=== PATIENT | male | born 1960 | race Caucasian/White ===

== ENCOUNTER 2017-09-08 15:09 | Inpatient (IN) ==
[2017-09-08 16:54] LABS: Alanine Aminotransferase 21 Units/L (7-52); Albumin 4.4 g/dL (3.5-5.7); Albumin/Globulin Ratio 1.6 (1.1-2.2); Alkaline Phosphatase 77 Units/L (34-104); Aspartate Amino Transferase 26 Units/L (13-39); BUN/Creatinine Ratio 39 (6-26); Bilirubin,Total 0.5 mg/dL (0.3-1.0); Blood Urea Nitrogen 55 mg/dL (6-20); Calcium 9.3 mg/dL (8.6-10.3); Carbon Dioxide 28 mEq/L (23-29); Chloride 105 mEq/L (98-107); Globulin 2.7 g/dL (2.4-3.5); Glucose 113 mg/dL (70-105); Osmolality,Calculated 308 (280-300); Potassium 4.7 mEq/L (3.5-5.1); Sodium 141 mEq/L (136-145); Total Protein 7.1 g/dL (6.4-8.9); eGFR For African Americans > 60 (> 60); eGFR For Non-African Americans 52 (> 60)
[2017-09-08 16:56] LABS: Basophils % 0.1 %; Hematocrit 32.4 % (37.5-50.1); Hemoglobin 10.6 g/dL (12.9-16.9); Immature Granulocytes % 0.3 % (0-4); Lymphocytes # 0.3 K/mcL (0.6-4.6); Lymphocytes % 2.5 %; Mean Corpuscular HGB Conc 32.7 g/dL (31.6-35.5); Mean Corpuscular Hemoglobin 29.9 pg (28.0-33.3); Mean Corpuscular Volume 91.3 fL (83.0-100.0); Mean Platelet Volume 9.7 fL (9.4-12.4); Monocytes # 0.4 K/mcL (0.0-1.3); Monocytes % 3.1 %; Neutrophils # 10.9 K/mcL (1.6-8.9); Platelet Count 190 K/mcL (140-400); Red Blood Count 3.55 M/mcL (4.19-5.50); Red Cell Distribution Width 12.2 % (11.5-14.5)
--- NOTE | 2017-09-08 16:59 | Emergency Department Note ---
Disposition Clinical Impression: Creatinine elevation Ingestion of foreign material Qualifiers: Encounter type: initial encounter Qualified Code(s): T18.9XXA - Foreign body of alimentary tract, part unspecified, initial encounter Disposition: Admitted As Inpatient Condition: Fair Time of Disposition: 18:09 General Adult HPI - General Chief complaint: ED General Medical Stated complaint: "drank cleaning fluid" Time Seen by Provider: 09/08/17 15:21 Source: patient, family Mode of arrival: ambulatory Limitations: no limitations Nursing Notes Reviewed: Yes Vital Signs Reviewed: Yes - History of Present Illness HPI Narrative: 56-year-old male presents to the emergency department with history of dementia for drinking cleaning fluid. Family said that he does have dementia and wandering around and drinks Hartman stuff. They said that they noticed the ware cleaner was Bronson emptying and when they started and there was some in the sink but there was deftly some around his mouth or unsure how much he drank. They stated been acting normal since he said he was having a little bit hard time breathing right after this but since then has gotten better. He has no other medical issues including no dyspnea or lung problems. He has no COPD or asthma. Patient otherwise is having no complaints including no fevers, chills, nausea, vomiting, neck pain, back pain, headache, blurry vision, abdominal pain , change in balance, pain with urination, generalized weakness or pain or tingling going down the arms or legs. Pain Scale: 2 - Related Data Home Medications Medication Instructions Recorded Confirmed ALPRAZolam [Xanax 0.25 MG Tablet] 0.25 mg PO BID 07/21/17 08/27/17 Previous Rx's Medication Instructions Recorded Polyethylene Glycol 3350 [MiraLAX] 17 gm PO DAILY #1 tub 08/27/17 Tamsulosin [Flomax] 1 tab PO DAILY #30 cap.er.24h 08/27/17 Allergies Allergy/AdvReac Type Severity Reaction Status Date / Time No Known Allergies Allergy Verified 09/05/17 10:44 Review of Systems: 10 point review of systems done and negative unless otherwise stated in the history of present illness. All systems ED: reviewed and negative except as stated. Review of Systems: As Per HPI Past Medical History - Past Medical History Attestation: Yes The following information was validated with the patient. Source: patient Medical history: Reports: dementia Psychiatric history: Reports: no psych history - Social History Smoking Status: Former smoker Smokeless Tobacco Status: No Alcohol use: Reports: none Drug use: Reports: none Physical Exam - General Limitations: no limitations General appearance: alert, in no apparent distress - Head Head exam: atraumatic, normocephalic, normal inspection - Eye Eye exam: Present: normal appearance, PERRL, EOMI - ENT ENT exam: normal exam, normal oropharynx, mucous membranes moist - Neck Neck exam: Present: normal inspection, full ROM, trachea midline - Chest Chest inspection: Present: normal inspection, symmetric chest wall rise - Respiratory Respiratory exam: Present: normal lung sounds bilaterally - Cardiovascular Cardiovascular exam: Present: regular rate, normal rhythm, normal heart sounds - Abdominal Exam Abdominal exam: Present: soft, Non-Tender. Absent: tenderness, distention, guarding, rebound, rigidity - Extremities Exam Extremities exam: Present: normal inspection, full ROM. Absent: tenderness, pedal edema - Expanded Lower Extremity Exam Neurovascular/Tendon exam: Present: normal capillary refill. Absent: pulse deficit, motor deficit, sensory deficit, tendon deficit - Back Exam Back exam: Present: normal inspection, full ROM. Absent: tenderness, CVA tenderness (R), CVA tenderness (L) - Neurological Exam Neurological exam: Present: alert. Absent: oriented X3 (Normal according to family. Due to dementia.) - Skin Skin exam: Present: warm, dry, intact, normal color Course Course Narrative: 56-year-old male presents to the emergency department after drinking cleaning fluid they believe it was and Mr. landa all-purpose. I did speak with our security solutions architect Dr. Jo who said you can just observe these patient is loss there is no changes in mental status as well as having hard time breathing observe him for 2 hours. We did get a CBC and CMP as well as chest x-ray. We will observe for 2 hours and then. Disposition at that time. - Reevaluation(s) Reevaluation #1: Spoke with poison control who said that the new creatinine most likely is not from the drinking of Mr. landa. They said we will probably happened is he vomited after drinking and possibly an aspiration pneumonitis 60 recommended blood cultures and admission for evaluation for possible aspiration pneumonitis. Time: 17:30 - Consultations Consultation #1: Spoke with the hospitalist Dr. Garcia who agreed to admit the patient to their service. Time: 18:03 Vital Signs Temperature 100.6 F H 09/08/17 15:13 Pulse Rate 89 09/08/17 15:13 Respiratory Rate 18 09/08/17 15:13 Blood Pressure 138/81 09/08/17 15:13 O2 Sat by Pulse Oximetry 97 09/08/17 15:13 Temperature 100.6 F H 09/08/17 15:13 Pulse Rate 89 09/08/17 15:13 Respiratory Rate 18 09/08/17 15:13 Blood Pressure 138/81 09/08/17 15:13 O2 Sat by Pulse Oximetry 97 09/08/17 15:13 Oxygen Delivery Oxygen Delivery Room Air Medical Decision Making - MDM Narrative Medical decision making narrative: 56-year-old male presents to the emergency department after drinking Mr. Martínez. They said he drank an unknown amount. I did consult with our security solutions architect Dr. Beltran who recommended due to the elevated creatinine to at least observe the patient. We did call contact poison control and they said the increase in BUN/creatinine most likely is not from the Mr. landa but could be due to a aspiration pneumonitis and they recommended admission with repeat a chest x-ray and blood cultures for possible and IV antibiotics needed. Patient is demented started give the IVN fluids as well as antibiotics we need to give 2 mg Haldol which patient tolerated well. We are not giving him back to this time as ischemia pending results. I did speak with the hospitalist who agreed to admit the patient to their service. Patient did have a new elevated creatinine and BUN doubled for approximately 12 days ago otherwise all other labs were negative he had no nausea or vomiting with states that was the most likely symptoms after drinking the Mr. landa. Chest x-ray also had no acute 100 maladies. Patient is admitted to the hospitalist for in stable condition at this time. Chest X-Ray 09/08/17 15:27 IMPRESSION: Normal chest x-ray D/ / Pollo Aguiar MD / Pollo Aguiar MD Interpreting Provider: Pollo Aguiar MD - Medical Records Medical records reviewed: Yes I reviewed the patient's medical records. - Lab Data Lab results reviewed: Yes I reviewed the patient's lab results. Result diagrams: 09/08/17 16:13 09/08/17 16:13 Lab Results 09/08/17 09/08/17 09/08/17 Range/Units 16:13 16:13 17:31 WBC 11.6 H (4.3-11.1) K/mcL RBC 3.55 L (4.19-5.50) M/mcL Hgb 10.6 L (12.9-16.9) g/dL Hct 32.4 L (37.5-50.1) % MCV 91.3 (83.0-100.0) fL MCH 29.9 (28.0-33.3) pg MCHC 32.7 (31.6-35.5) g/dL RDW 12.2 (11.5-14.5) % Plt Count 190 (140-400) K/mcL MPV 9.7 (9.4-12.4) fL Immature Gran % 0.3 (0-4) % Seg Neutrophils % 94.0 % Lymphocytes % 2.5 % Monocytes % 3.1 % Eosinophils % 0.0 % Basophils % 0.1 % Neutrophils # 10.9 H (1.6-8.9) K/mcL Lymphocytes # 0.3 L (0.6-4.6) K/mcL Monocytes # 0.4 (0.0-1.3) K/mcL Eosinophils # 0.0 (0.0-0.6) K/mcL Basophils # 0.0 (0.0-0.2) K/mcL Sodium 141 (136-145) mEq/L Potassium 4.7 (3.5-5.1) mEq/L Chloride 105 (98-107) mEq/L Carbon Dioxide 28 (23-29) mEq/L BUN 55 H (6-20) mg/dL Creatinine 1.41 H (0.70-1.30) mg/dL Est GFR ( Amer) > 60 (> 60) Est GFR (Non-Af Amer) 52 L (> 60) BUN/Creatinine Ratio 39 H (6-26) Glucose 113 H (70-105) mg/dL Calculated Osmolality 308 H (280-300) Lactic Acid 0.7 (0.5-2.2) mmol/L Calcium 9.3 (8.6-10.3) mg/dL Total Bilirubin 0.5 (0.3-1.0) mg/dL AST 26 (13-39) Units/L ALT 21 (7-52) Units/L Alkaline Phosphatase 77 (34-104) Units/L Serum Total Protein 7.1 (6.4-8.9) g/dL Albumin 4.4 (3.5-5.7) g/dL Globulin 2.7 (2.4-3.5) g/dL Albumin/Globulin Ratio 1.6 (1.1-2.2) - Radiology Data Radiology results reviewed: Yes I reviewed the patient's radiology results. Attestation Statement - Attestation Attestation: I examined this patient and my medical decision-making was reviewed with the Resident Physician. I agree with the documented findings, disposition and treatment plan as described except to the extent set forth below. Discussed case with attending security solutions architect. Plan to admit for acute kidney injury in the setting of febrile illness. It is possible that the patient suffered aspiration and has resulting chemical pneumonitis which has not declared itself on x-ray. As a result this may have in turn caused acute kidney injury. Given the underlying demented state of the patient it would be best to observe overnight to try and the creatinine as well as observe for respiratory insufficiency. The patient will be admitted after cultures, lactate were initiated. I would defer antibiotics at this time pending results of cultures.
[2017-09-08] MEDS ORDERED: 0.9 % Sodium Chloride 1,000 ML IVC ONE (17:13)
[2017-09-08] MEDS ORDERED: Haloperidol Lactate 5 MG/ML VIAL IVP ONE (17:41)
[2017-09-08] MEDS ORDERED: Haloperidol Lactate 5 MG/ML VIAL IM ONE (20:05)
[2017-09-08] MEDS ORDERED: Acetaminophen 325 MG TABLET PO PRN (20:25)
[2017-09-08] MEDS ORDERED: Naloxone 0.4 MG/ML INJ IVP PRN (20:25)
--- NOTE | 2017-09-08 20:49 | Internal Med History&Physical ---
Date of Encounter: 09/08/17 Time of Encounter: 19:00 Assessment and Plan (1) Aspiration pneumonia Current visit: Yes Status: Suspected Pt has cough, elevated WBC and low fever. CXR negative now. Suspected aspiration pneumonia. - Place pt on unasyn now to cover aspiration pneumonia. - NPO, IVF, speech therapy consult for swallow evaluation. - Symptomatic treatment as needed, closely monitor pt. Qualifiers: Aspiration pneumonia type: due to vomit Laterality: unspecified laterality Qualified Code(s): J69.0 - Pneumonitis due to inhalation of food and vomit (2) DVT prophylaxis Current visit: Yes Status: Acute Heparin SC (3) Creatinine elevation Current visit: Yes Status: Acute Probably due to cleaning material intake? dehydration?. Cont IVF, follow up renal function. Avoid nephrotoxic meds. (4) Ingestion of foreign material Current visit: Yes Status: Acute Closely monitor pt in tele. Follow up renal/liver function. Qualifiers: Encounter type: initial encounter Qualified Code(s): T18.9XXA - Foreign body of alimentary tract, part unspecified, initial encounter (5) Weight loss Current visit: No Status: Acute Cont f/u with oncology as outpatient. Internal Medicine - H&P: HPI Chief complaint: Cough Admitted From: Home Plans for Post Hospital Care: Home History of present illness: Mr. Junior is a 56 year old male with hx of early onset dementia sent to ER by family for suspect drinking Mr Warner at home and cough. Pt was suspected to drink about one cup of Mr Warner this afternoon. Pt has nonproductive cough. No SOB. Has low fever in ER with temperature 100.6. Pt was suspected aspiration but seems he is not nauseous. He has no witnessed vomiting as well. In ER, pt was placed on monitoring. Poison control was called by ER, recommend closely monitor pt, no specific treatment at this point. Pt's told me pt has recent BW loss although having good appetite. He is follow with oncology for this issue now. I have discussed with pt's regarding CODE STATUS, she told me pt would like no CPR but accept intubation for short period, DNRCCA placed. Past Med Surg Social Fam HX - Past Medical History Medical history: dementia Psychiatric history: no psych history - Past Surgical History Surgical History: no surgical history - Social History Smoking Status: Former smoker Smokeless Tobacco Status: No Alcohol use: none Drug use: none - Family History Father Hx Family Neurologic Disorders: Yes (Huntingtons disease) Internal Medicine - H&P: Meds Polyethylene Glycol 3350 [MiraLAX] 17 gm PO DAILY #1 tub 08/27/17 [Rx] ALPRAZolam [Xanax 0.5 MG Tablet] 0.5 mg PO TID 09/08/17 [History] Tamsulosin [Flomax] 0.4 mg PO DAILY 09/08/17 [History] 3 Allergy/AdvReac Type Severity Reaction Status Date / Time No Known Allergies Allergy Verified 09/05/17 10:44 All Systems PM: A 10-system review of systems was performed and is negative for pertinent findings except as documented above in the HPI. - Constitutional Vitals: Temp Pulse Resp BP Pulse Ox 97.7 F 76 17 122/71 98 09/08/17 19:26 09/08/17 19:26 09/08/17 19:26 09/08/17 19:26 09/08/17 19:26 General appearance: Present: A&O X 0, no acute distress - Head Head exam: Present: atraumatic, normocephalic - Eye Eye exam: Present: PERRL, conjuntiva pink, sclera anicteric Pupils: Present: PERRL - Neck Neck exam general surgery: Present: supple, trachea midline. Absent: lymphadenopathy - Respiratory Respiratory exam: Present: CTAB. Absent: accessory muscle use, rales, rhonchi, wheezes - Cardiovascular Cardiovascular exam: Present: RRR, +S1, +S2. Absent: diastolic murmur, gallop, rubs, systolic murmur - GI/Abdominal GI/Abdominal exam: Present: normal bowel sounds, soft, no peritoneal signs. Absent: distended, tenderness - Extremities Exam Extremities exam: Present: warm, radial pulses palpable and symmetrical. Absent : calf tenderness, cyanotic, pedal edema - Neurological Exam Neurological exam: Present: CN II-XII intact, oriented X3, no focal deficits. Absent: pronater drift, facial droop, speech deficit - Skin Skin exam: Present: dry, intact Internal Med - H&P Results - Labs CBC & Chem 7: 09/08/17 16:13 09/08/17 16:13
[2017-09-08 22:16] LABS: Bilirubin,Urine Negative (Negative); Blood,Urine Small (Negative); Clarity,Urine Clear (Clear); Color,Urine Yellow (Yellow); Glucose,Urine (UA) Normal (Normal); Ketones,Urine Negative (Negative); Leukocyte Esterase,Urine Negative (Negative); Nitrite,Urine Negative (Negative); Protein,Urine Trace mg/dL (Neg-Trace); Urobilinogen,Urine Normal (Normal)
[2017-09-08] MEDS: 0.9 % Sodium Chloride 1,000 ML IVC SCH (22:16)
[2017-09-08] MEDS: ALPRAZolam 0.5 MG TABLET PO SCH (22:16)
[2017-09-08 22:18] LABS: Bacteria,Urine None Seen per hpf (None-Few); Hyaline Casts,Urine None Seen per lpf (None-Few); Squamous Epithelial Cell,Urine Moderate per lpf (None-Few); WBC,Urine 0-3 per hpf (0-3)
[2017-09-08] MEDS: Ampicillin/Sulbactam 3,000 MG in 0.9 % Sodium Chloride Mini Bag 100 ML IVPB SCH (23:22)
[2017-09-09 05:10] LABS: Basophils % 0.2 %; Eosinophils % 0.1 %; Hematocrit 30.7 % (37.5-50.1); Hemoglobin 10.2 g/dL (12.9-16.9); Immature Granulocytes % 0.2 % (0-4); Lymphocytes # 0.7 K/mcL (0.6-4.6); Lymphocytes % 7.6 %; Mean Corpuscular HGB Conc 33.2 g/dL (31.6-35.5); Mean Corpuscular Hemoglobin 30.5 pg (28.0-33.3); Mean Corpuscular Volume 91.9 fL (83.0-100.0); Monocytes # 0.5 K/mcL (0.0-1.3); Monocytes % 5.2 %; Neutrophils # 7.5 K/mcL (1.6-8.9); Platelet Count 155 K/mcL (140-400); Red Blood Count 3.34 M/mcL (4.19-5.50); Red Cell Distribution Width 12.6 % (11.5-14.5); Segmented Neutrophils % 86.7 %
[2017-09-09] MEDS: Ampicillin/Sulbactam 3,000 MG in 0.9 % Sodium Chloride Mini Bag 100 ML IVPB SCH (05:24)
[2017-09-09] MEDS: *HR* Heparin 5,000 UNIT/ML VIAL SQ SCH ×2 (05:24→18:46)
[2017-09-09 05:28] LABS: BUN/Creatinine Ratio 38 (6-26); Blood Urea Nitrogen 37 mg/dL (6-20); Carbon Dioxide 25 mEq/L (23-29); Chloride 109 mEq/L (98-107); Glucose 94 mg/dL (70-105); Magnesium 2.1 mg/dL (1.6-2.6); Osmolality,Calculated 298 (280-300); Potassium 4.2 mEq/L (3.5-5.1); Sodium 140 mEq/L (136-145); eGFR For African Americans > 60 (> 60); eGFR For Non-African Americans > 60 (> 60)
[2017-09-09] MEDS: ALPRAZolam 0.5 MG TABLET PO SCH ×3 (09:45→20:00)
[2017-09-09] MEDS: 0.9 % Sodium Chloride 1,000 ML IVC SCH (11:53)
--- NOTE | 2017-09-09 13:53 | Discharge Summary ---
<Car Hernández - Last Filed: 09/09/17 13:48> Orders not resulted at time of discharge: Pending orders 09/09/17 13:36 Urine tox screen [Drug Screen, Urine] [[facility]] Stat ECG 12 lead ECG [ECG] Stat Date of Encounter: 09/09/17 Time of Encounter: 13:48 - Discharge Diagnosis (1) Ingestion of foreign material Priority: Primary Status: Acute Qualifiers: Encounter type: initial encounter Qualified Code(s): T18.9XXA - Foreign body of alimentary tract, part unspecified, initial encounter (2) TIFFANIE (acute kidney injury) Priority: Secondary Status: Resolved (3) Aspiration pneumonia Priority: Secondary Status: Ruled-out Qualifiers: Aspiration pneumonia type: due to vomit Laterality: unspecified laterality Lung location: unspecified part of lung Qualified Code(s): J69.0 - Pneumonitis due to inhalation of food and vomit (4) DVT prophylaxis Priority: Secondary Status: Chronic (5) Weight loss Priority: Secondary Status: Acute Hospital course: Mr. 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 landa as per family. Patient drank about 1 cup. Since then he has had a nonproductive cough. There was no shortness of breath. It initially patient had a temperature of 100.6 which has resolved. Poison control was called by the ER and recommended close monitoring. Patient did not require any supplemental oxygen. Chest x-ray was negative for any acute changes. Patient had a slight elevation of his white blood cell, which has resolved. His creatinine was 1.41 which has resolved with IV fluids. Urinalysis was negative for infection. Initially patient was thought to have aspiration pneumonia however there is no evidence on imaging or clinical examination and antibiotics were discontinued. Patient had speech evaluation and is placed on a nectar thickened diet with mechanically altered diet ground meat. Patient is tolerating diet and is at able to ambulate on his own. He will need 24/7 for some assistance. Patient reports that he is a compartment to manage, more combative, more agitated. Patient takes alprazolam at home for agitation. Major referral to geriatric psych facility at [facility] with his assessment that the patient's. - Time Spent with Patient Total time spent providing and/or coordinating discharge services: - Discharge Medications Home Medications: Polyethylene Glycol 3350 [MiraLAX] 17 gm PO DAILY #1 tub 08/27/17 [Rx] ALPRAZolam [Xanax 0.5 MG Tablet] 0.5 mg PO TID 09/08/17 [History] Tamsulosin [Flomax] 0.4 mg PO DAILY 09/08/17 [History] Allergies/Adverse Reactions: 3 Allergy/AdvReac Type Severity Reaction Status Date / Time No Known Allergies Allergy Verified 09/05/17 10:44 Date of admission: 09/08/17 20:25 Primary care physician: Deidra Mendoza CNP Consults: 09/08/17 20:31 Consult to Speech Therapy [CONS] Routine Comment: Evaluate, develop and implement POC Reason for Consult: suspect aspiration, swallow evaluation Call Completed: No 09/09/17 09:53 Consult to Occupational Therapy [CONS] Routine Comment: Evaluate, develop and implement POC Reason for Consult: Physical deconditioning. Does patient have active BEDREST order?: No Is patient medically & hemodynamically stable?: Yes Consult to Physical Therapy [CONS] Routine Comment: Evaluate, develop and implement POC Reason for Consult: physical deconditioning Does patient have active BEDREST order?: No Is patient medically & hemodynamically stable?: Yes Discharging clinician: Car Hernández Anticipated date of discharge: 09/09/17 - Constitutional Vitals: Temp Pulse Resp BP Pulse Ox 98.1 F 78 16 122/72 95 09/09/17 12:04 09/09/17 12:04 09/09/17 12:04 09/09/17 12:04 09/09/17 12:04 General appearance: Present: A&O X 0, no acute distress - Other Additional findings: General: Pleasant without distress HEENT: Head atraumatic, normocephalic, EOMI, PERRL, neck nontender to palpation , absent lymphadenopathy, Moist Mucous Membranes, Heart: Regular rate and rhythm with no murmur Lungs: Clear to auscultation bilaterally Abdomen: Soft nontender, nondistended positive bowel sounds Skin: warm and dry Extremities: Absent pedal edema, Neuro: Alert and oriented 0, does not follow directions Vascular: Pedal and radial pulses 2 out of 4 - Patient Status Disposition: Transfer Psychiatric Hosp Condition: Fair Functional capacity at discharge: independent ambulation Overall status at discharge: patient is progressing back to baseline - Discharge Instructions Follow Up With: Deidra Mendoza CNP [Primary Care Provider] - (this patient is going to [facility] no PCP appointment needed) - Diet and Activity Activity: increase activity as tolerated Diet: other (Necter thickened diet, mechanically altered diet ground meat) <Fei Talley - Last Filed: 09/09/17 18:21> Orders not resulted at time of discharge: Pending orders 09/09/17 CT 3D reconstruction [CT] Routine 09/09/17 13:36 ECG 12 lead ECG [ECG] Stat 09/09/17 14:10 Glucose,Body Fluid [BF] Stat 09/10/17 04:00 CBC [Complete Blood Count] [HEME] AM 0400 Date of Encounter: 09/09/17 - Discharge Diagnosis (1) Ingestion of foreign material Status: Acute Qualifiers: Encounter type: initial encounter Qualified Code(s): T18.9XXA - Foreign body of alimentary tract, part unspecified, initial encounter (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 Junior is a 56 year old male - Time Spent with Patient Total time spent providing and/or coordinating discharge services: 38min Date of admission: 09/08/17 20:25 Primary care physician: Deidra Mendoza CNP Consults: 09/08/17 20:31 Consult to Speech Therapy [CONS] Routine Comment: Evaluate, develop and implement POC Reason for Consult: suspect aspiration, swallow evaluation Call Completed: No 09/09/17 09:53 Consult to Occupational Therapy [CONS] Routine Comment: Evaluate, develop and implement POC Reason for Consult: Physical deconditioning. Does patient have active BEDREST order?: No Is patient medically & hemodynamically stable?: Yes Consult to Physical Therapy [CONS] Routine Comment: Evaluate, develop and implement POC Reason for Consult: physical deconditioning Does patient have active BEDREST order?: No Is patient medically & hemodynamically stable?: Yes - Constitutional Vitals: Temp Pulse Resp BP Pulse Ox 99.7 F H 103 18 123/86 90 09/09/17 15:24 09/09/17 15:24 09/09/17 15:24 09/09/17 15:24 09/09/17 15:24 - Attending Attestation I examined this patient and my medical decision-making was reviewed with the Resident Physician on 09/09/17. I agree with the documented findings, disposition and treatment plan as described except to the extent set forth below. Mr Junior has been admitted with acute ingestion of Mr Timmy and possible aspiration. He is now at baseline but would benefit from admission for management of medications for his dementia. He is afebrile and OK for discharge today. Exam Alert Up in room Mucus membranes dry Heart reg No wheeze Abd soft Plan D/C to geropsych when available.
--- NOTE | 2017-09-09 14:35 | Physician Discharge Referral ---
ExtendedCare Referral Info Transfer To: [facility] geriatric psych Provider in Charge: Shante Provider in Charge after Transfer: PCP Institutional Level of Care: Intermediate - Diagnosis (1) Ingestion of foreign material Priority: Primary Status: Acute (2) TIFFANIE (acute kidney injury) Priority: Secondary Status: Resolved (3) Aspiration pneumonia Priority: Secondary Status: Ruled-out (4) DVT prophylaxis Priority: Secondary Status: Chronic (5) Weight loss Priority: Secondary Status: Acute (6) Corticobasal degeneration Priority: Secondary Status: Acute - Transfer Medications Home Medications: Polyethylene Glycol 3350 [MiraLAX] 17 gm PO DAILY #1 tub 08/27/17 [Rx] ALPRAZolam [Xanax 0.5 MG Tablet] 0.5 mg PO TID 09/08/17 [History] Tamsulosin [Flomax] 0.4 mg PO DAILY 09/08/17 [History] Allergies/Adverse Reactions: 3 Allergy/AdvReac Type Severity Reaction Status Date / Time No Known Allergies Allergy Verified 09/05/17 10:44 - Respiratory Orders None Smoking Cessation: Smoking cessation has been advised. For more information, call the [place] Tobacco Quit Line at 5-686-PBVINOW. - Advance Directives Code Status: DNR-Arrest - Mobility Orders Ambulate - Rehabiliation Orders Rehab Potential: Fair - Treatments Skin tear care topically daily PRN per policy - Diet Orders Regular (Mechanically altered diet ground meat, meds in pureeed Textures. [place] thickened diet assist with feeds.) CERTIFICATION: I certify that the transfer of the above named patient to an Extended Care Facility is necessary for the continuing treatment of the diagnosis listed. The above information is true and accurate reflection of patient's current condition. Confidential - Redisclosure prohibited without a patient's written consent.
[2017-09-09 14:43] LABS: Amphetamine Screen,Urine Negative ng/mL (Cutoff=1000); Barbiturate Screen,Urine Negative ng/mL (Cutoff=200); Benzodiazepines Screen,Urine Positive ng/mL (Cutoff=200); Cannabinoid Screen,Urine Negative ng/mL (Cutoff = 50); Cocaine Screen,Urine Negative ng/mL (Cutoff= 300); Opiate Screen,Urine Negative ng/mL (Cutoff=300); Phencyclidine Screen,Urine Negative ng/mL (Cutoff=25)
--- NOTE | 2017-09-09 15:48 | Event Note ---
<Car Hernández - Last Filed: 09/09/17 15:46> Date of Encounter: 09/09/17 Time of Encounter: 15:46 Patient was drinking coffee and there after started coughing and requiring supplemental O2. He is currently on oxymask 8L O2. Getting stat cxr to evaluate. <Fei Talley - Last Filed: 09/09/17 18:22> Date of Encounter: 09/09/17 CXR negative at this time. He has improved with coughing.
[2017-09-10] MEDS: *HR* Heparin 5,000 UNIT/ML VIAL SQ SCH (04:57)
[2017-09-10 05:57] LABS: Basophils % 0.3 %; Eosinophils % 0.2 %; Hematocrit 27.5 % (37.5-50.1); Hemoglobin 9.2 g/dL (12.9-16.9); Immature Granulocytes % 0.2 % (0-4); Lymphocytes # 0.7 K/mcL (0.6-4.6); Mean Corpuscular HGB Conc 33.5 g/dL (31.6-35.5); Mean Corpuscular Hemoglobin 30.6 pg (28.0-33.3); Mean Corpuscular Volume 91.4 fL (83.0-100.0); Mean Platelet Volume 10.2 fL (9.4-12.4); Monocytes # 0.4 K/mcL (0.0-1.3); Monocytes % 7.2 %; Platelet Count 144 K/mcL (140-400); Red Blood Count 3.01 M/mcL (4.19-5.50); Red Cell Distribution Width 12.3 % (11.5-14.5); Segmented Neutrophils % 81.1 %
[2017-09-10 06:27] LABS: Platelet Estimate Normal (Normal)
[2017-09-10] MEDS: ALPRAZolam 0.5 MG TABLET PO SCH ×2 (08:50→13:58)
--- NOTE | 2017-09-10 09:33 | Internal Med Progress Note ---
<Car Hernández - Last Filed: 09/10/17 09:31> Date of Encounter: 09/10/17 Time of Encounter: 09:31 - Assessment and plan (1) Aspiration into respiratory tract Status: Acute Assessment and plan: Last night patient drink coffee and was witnessed to possibly aspirate. Initially required 8 L of oxygen but now is completely weaned off. Repeating chest x-ray this morning. He is not in acute respiratory distress. If chest x-ray is negative patient will be discharged to geriatric psych facility. Qualifiers: Encounter type: initial encounter Qualified Code(s): T17.908A - Unspecified foreign body in respiratory tract, part unspecified causing other injury, initial encounter (2) Ingestion of foreign material Status: Acute Assessment and plan: stable. cbc and BMP WNL Qualifiers: Encounter type: initial encounter Qualified Code(s): T18.9XXA - Foreign body of alimentary tract, part unspecified, initial encounter (3) TIFFANIE (acute kidney injury) Status: Resolved Assessment and plan: resolved. (4) DVT prophylaxis Status: Chronic Assessment and plan: heparin SQ (5) Corticobasal degeneration Status: Chronic Assessment and plan: Patient being discharged to geriatric psych unit for further treatment and evaluation. - Subjective Interval history: Patient shortness of breath, coughing has resolved. He is not requiring any supplemental oxygen. Chest x-ray done yesterday was negative for any acute processes. Overnight patient had a temperature of 100.4. - Constitutional Vitals: Temp Pulse Resp BP Pulse Ox 98.9 F 85 19 103/58 96 09/10/17 04:55 09/10/17 04:55 09/10/17 04:55 09/10/17 04:55 09/10/17 09:04 General appearance: Present: A&O X 0, no acute distress - Other Additional findings: General: Pleasant without distress HEENT: Head atraumatic, normocephalic, EOMI, PERRL, neck nontender to palpation , absent lymphadenopathy, Moist Mucous Membranes, Heart: Regular rate and rhythm with no murmur Lungs: Clear to auscultation bilaterally Abdomen: Soft nontender, nondistended positive bowel sounds Skin: warm and dry Extremities: Absent pedal edema, Neuro: Alert and oriented 0, does not follow directions Vascular: Pedal and radial pulses 2 out of 4 Internal Medicine: Result - Labs CBC & Chem 7: 09/10/17 05:08 09/09/17 04:36 Labs: Short CBC 09/10/17 Range/Units 05:08 WBC 6.1 (4.3-11.1) K/mcL Hgb 9.2 L (12.9-16.9) g/dL Hct 27.5 L (37.5-50.1) % Plt Count 144 (140-400) K/mcL Neutrophils # 5.0 (1.6-8.9) K/mcL - Impressions Impressions Face CT 09/09/17 14:09 IMPRESSION: No acute traumatic injury of the facial bones. D/ / Lb William MD / Lb William MD Interpreting Provider: Lb William MD Head CT 09/09/17 14:09 IMPRESSION: 1. No acute intracranial abnormality. 2. Mild to moderate diffuse atrophy greater than expected for age. 3. Mild chronic small vessel ischemic changes. D/ / Lb Fernandez MD / Lb Fernnadez MD Interpreting Provider: Lb Fernandez MD Chest X-Ray 09/09/17 15:42 IMPRESSION: No acute process. D/ / Lb William MD / Lb William MD Interpreting Provider: Lb William MD Consult Discharge Plan - Plan Instructions: Dementia (GEN) Referrals: Deidra Mendoza, FOREIGN EXCHANGE CLERK [Primary Care Provider] - (this patient is going to [facility] no PCP appointment needed) <Fei Talley - Last Filed: 09/10/17 18:35> Date of Encounter: 09/10/17 - Assessment and plan (1) Ingestion of foreign material Status: Acute Qualifiers: Encounter type: subsequent encounter Qualified Code(s): T18.9XXD - Foreign body of alimentary tract, part unspecified, subsequent encounter (2) Corticobasal degeneration Status: Chronic - Constitutional Vitals: Temp Pulse Resp BP Pulse Ox 97.7 F 89 16 109/74 94 09/10/17 11:43 09/10/17 11:43 09/10/17 11:43 09/10/17 11:43 09/10/17 11:43 Internal Medicine: Result - Labs CBC & Chem 7: 09/10/17 05:08 09/09/17 04:36 Labs: Short CBC 09/10/17 Range/Units 05:08 WBC 6.1 (4.3-11.1) K/mcL Hgb 9.2 L (12.9-16.9) g/dL Hct 27.5 L (37.5-50.1) % Plt Count 144 (140-400) K/mcL Neutrophils # 5.0 (1.6-8.9) K/mcL - Impressions Impressions Chest X-Ray 09/10/17 09:18 IMPRESSION: No acute process. D/ / Lb William MD / Lb William MD Interpreting Provider: Lb William MD - Attending Attestation I examined this patient and my medical decision-making was reviewed with the Resident Physician on 09/10/17. I agree with the documented findings, disposition and treatment plan as described except to the extent set forth below. Mr Junior is currently admitted for acute ingestion of Mr Warner. He is to go to [facility] facility. He remains moderate risk at this time. Mr Junior had low grade temp last night. No fever now. No dypnea. Not on oxygen. Exam Alert Comfortable Mucus membranes dry Heart reg No wheeze I/P 1. Ingestion 2. Aspiration - repeat CXR Anticipate d/c to [facility] today. Further diagnoses and plan as above.
[2017-09-10 11:44] VITALS: BP 109/74
--- NOTE | 2017-09-10 19:50 | Electrocardiograph Report ---
[place] [id number] Test Date: 2017-09-09 Pat Name: Danial Junior Department: 110 Room: 2N06 Gender: M Environmental Laboratory Technician: RICHIE : 1960 Requested By: Car Hernández Order Number: [id number] Reading MD: García Banks MD Measurements Intervals [place] Rate: 90 P: 76 MS: 139 QRS: 78 QRSD: 85 T: 85 QT: 349 QTc: 397 Interpretive Statements SINUS RHYTHM ST DEVIATION AND MODERATE T-WAVE ABNORMALITY, CONSIDER ANTERIOR ISCHEMIA Electronically Signed On 09-10-2017 19:48:21 EDT by García Banks MD
== END 2017-09-10 14:55 | DRG 394 ==
LOC: 3ANU 15:09 → EMEROO 15:09 → 3ANU 18:56 → SUATTDRO 20:25 → 2NNU 23:46
PROVIDERS: ADMIT Internal Medicine; ATTEND Internal Medicine